=== PATIENT | male | born 1990 | race Two or more races ===

== ENCOUNTER 2022-07-25 04:12 | Emergency (ER) | payer MEDICAID ==
[~2022-07-25] VITALS: Ht 172.7 cm; Wt 68.0 kg
--- NOTE | 2022-07-25 04:28 | NUR ---
BIBself from home c/o ring stuck on penis and scrotum x 1.5days. Pt A/Ox4.
--- NOTE | 2022-07-25 04:58 | NUR ---
RT AT PT'S BEDSIDE WITH RING CUTTER TO REMOVE RING FROM PENIS
--- NOTE | 2022-07-25 05:20 | NUR ---
Patient does not wish to proceed with medical care recommended by Dr. Casarez. Patient given information related to possible complications, up to and including , which could occur as a result of leaving the hospital at this time. Patient verbalizes understanding of risks involved due to leaving against medical advice. Patient has signed AMA form. Pt did not want to wait for RN to remove ring from penis.
--- NOTE | 2022-07-25 05:46 | NUR ---
Anjali ikser in [facility] - 07/25/22 at 0546 by SEVERO Patient discharged to home in stable condition. Written and verbal after care instructions given. Patient verbalizes understanding of instruction.
[2022-07-25 05:48] VITALS: BP 144/87
== END 2022-07-25 05:20 | disposition left against medical advice (07) ==
LOC: ER 04:26
DX: S30.842A External constriction of penis, initial encounter (principal); W49.04XA Ring or other jewelry causing external constriction, initial encounter; Y93.89 Activity, other specified; Y92.89 Other specified places as the place of occurrence of the external cause; Y99.8 Other external cause status

== ENCOUNTER 2024-10-07 23:59 | Emergency (ER) | payer MEDICAID ==
[~2024-10-07] VITALS: Ht 172.7 cm; Wt 72.6 kg
[2024-10-08 03:24] LABS: APPEARANCE,URINE CLEAR (CLEAR); BILIRUBIN,URINE NEGATIVE (NEGATIVE); BLOOD, URINE NEGATIVE Ery/uL (NEGATIVE); COLOR,URINE YELLOW (YELLOW); KETONES,URINE NEGATIVE (NEGATIVE); LEUKOCYTE ESTERASE ,URINE NEGATIVE (NEGATIVE); NITRITE, URINE NEGATIVE (NEGATIVE); PROTEIN,URINE 1+ mg/dl (NEGATIVE); UGLUCOSE NEGATIVE (NEGATIVE)
[2024-10-08 03:25] LABS: ADD URINE CULTURE NO; BACTERIA,URINE Rare /HPF (None Seen); RBC,URINE 0-2 /HPF (0-2); SQUAMOUS EPITHELIAL CELL,UR Moderate /HPF (None Seen); WBC,URINE 0-2 /HPF (0-3)
[2024-10-08 03:35] VITALS: BP 114/69; TEMP 98.1; O2SAT 98
[2024-10-10 21:08] LABS: CHLAMYDIA TRACHOMATIS NAA Positive (Negative); NEISSERIA GONORRHOEAE NAA Negative (Negative)
== END 2024-10-08 03:37 | disposition home or self-care (01) ==
LOC: ER 10-08 00:10
DX: Z20.2 Contact with and (suspected) exposure to infections with a predominantly sexual mode of transmission (principal)
CPT/HCPCS: 81001; 87491; 87591